=== PATIENT | female | born 1995 | race Hispanic/Latino ===

== ENCOUNTER 2024-08-21 11:38 | Inpatient (IN) | payer BC, SELFPAY ==
[2024-08-21] VITALS (16 sets, daily range): BP systolic 90–118; BP diastolic 49–100; PULSE 76–91; TEMP 36.6–36.9; BMI 50.8
[2024-08-21 12:26] LABS: Basophils Percent Auto 0.4 % (0.2-1.2); Eosinophils Percent Auto 0.4 % (0-4.4); Hematocrit 36.6 % (37.0-47.0); Hemoglobin 12.1 g/dL (12.0-15.0); Immature Granulocyte Absolute 0.11 K/mm3 (0.00-0.031); Immature Granulocyte Percent A 1.2 % (0-0.5); Lymphocytes Absolute Auto 1.76 K/mm3 (0.9-3.2); Lymphocytes Percent Auto 19.8 % (18.3-44.2); Mean Corpuscular HGB Conc 33.1 g/dl (32-36); Mean Corpuscular Hemoglobin 29.7 pg (26-34); Mean Corpuscular Volume 89.9 fl (80-100); Mean Platelet Volume 11.3 fl (7.4-10.4); Monocytes Absolute Auto 0.5 K/mm3 (0.1-0.6); Monocytes Percent Auto 5.1 % (2.6-8.5); Neutrophils Absolute Auto 6.5 K/mm3 (1.3-6.7); Neutrophils Percent Auto 73.1 % (45.5-73.1); Platelet Count Result 221 k/mm3 (150-375); Red Blood Count 4.07 M/mm3 (4.2-5.4); White Blood Count 8.9 K/mm3 (4.5-10.0)
[2024-08-21] MEDS: miSOPROStol 25 MCG TABLET 50 MCG BUCCAL ×3 (12:26→20:27)
--- NOTE | 2024-08-21 12:43 | LDADM ---
This patient, Rachel Cameron, was admitted to Labor/Delivery/Recovery 103 on 08/21/24 at 11:38. Plans for labor, pain management and were discussed with patient. Patient/family oriented to hospital policies and general routines including ID bracelet, bed and alarms, visiting hours, pain management, procedures, bathroom and other care routines, personal items, smoking policy, room service/diet and guest tray routines, infant security routines, and visiting hours. Patient/Family are encouraged to report perceived risks to care and to ask questions if they do not understand what they are told or what they should do. See OBIX for further documentation.
[2024-08-21 13:21] LABS: HIV 1/2 Ab P24 Ag Result Negative (Negative)
[2024-08-22] VITALS (182 sets, daily range): BP systolic 60–220; BP diastolic 24–111; PULSE 58–286; RESP 18; TEMP 36.4–37.8; O2SAT 94–98
[2024-08-22] MEDS: LACTATED RINGERS 1,000 ML 125 ML IV CONT ×4 (02:40→20:04)
[2024-08-22] MEDS: OXYTOCIN 30 UNITS/NS 500 ML 30 UNITS/500 ML BAG IV CONT (02:41)
[2024-08-22 07:47] LABS: Rapid Plasma Reagin Non-Reactive (NonReactive)
--- NOTE | 2024-08-22 08:07 | PM.OBPNLAB ---
Pain Control Date/time seen: 08/22/24 08:07 Comments: SVE 2.5/50/-2 AROM moderate amount of clear, odorless fluid, anticipate vaginal delivery
[2024-08-22] MEDS: ONDANSETRON INJ 4 MG/2 ML VIAL IV PUSH (17:26)
--- NOTE | 2024-08-22 18:29 | PM.IMHP ---
H&P: HPI History of Present Illness Date/Time: 08/21/24 12:29 Chief Complaint: intrahepatic cholestasis of Narrative: Patient is a 29 year old at 36w4d who presents for induction of labor indicated for intrahepatic cholestasis of . She reported itching on her hands and feet at her most recent appointment. Labs were drawn that demonstrated elevated LFTs in the 60s/200s and bile acids elevated to 78. Risks and benefits of medical induction of labor was discussed with the patient who was agreeable to induction. has been otherwise uncomplicated. Review of Systems Review of Systems: All systems reviewed & are unremarkable except as noted in HPI and below PMFSH Family History Family History Other No pertinent family history Social History Social History Smoking status: Never smoker Substance use: never Do You Feel Safe in your Home?: No Lack of Transportation: No Lack of Food: Never True Current Housing: I Have Housing Concerned About Future Housing: No Difficulty Paying Gas/Electric Bills: No Difficulty Paying for Meds: No Currently Unemployed: No Education: Bachelor's Degree Difficulty w/ Childcare or Family Care: No Spiritual care concerns: No Meds Home Medications and Allergies Home Medications Medication Instructions Recorded Confirmed Type vits no.126-ferrous fum 1 tablet PO DAILY 08/19/24 08/19/24 History 28 mg iron-folic acid 800 mcg tablet (Classic ) Allergies Allergy/AdvReac Type Severity Reaction Status Date / Time No Known Allergies Allergy Verified 08/19/24 14:25 Vital Signs Vital Signs - 24 hr 08/21/24 18:31 08/21/24 18:46 08/21/24 19:49 Temperature Pulse Rate 86 90 85 Blood Pressure 108/72 118/100 H 90/49 L Pulse Oximetry 08/21/24 20:29 08/21/24 20:31 08/21/24 21:33 Temperature Pulse Rate 80 81 76 Blood Pressure 99/59 L 106/60 110/56 L Pulse Oximetry 08/21/24 22:01 08/21/24 22:31 08/21/24 22:00 Temperature 98.4 F Pulse Rate 76 80 Blood Pressure 118/77 102/75 Pulse Oximetry 08/22/24 00:30 08/22/24 00:35 08/22/24 01:01 Temperature 98.4 F Pulse Rate 79 88 Blood Pressure 115/65 98/59 L Pulse Oximetry 08/22/24 02:47 08/22/24 02:52 08/22/24 02:57 Temperature Pulse Rate 68 Blood Pressure 115/55 L Pulse Oximetry 97 97 97 08/22/24 03:01 08/22/24 03:02 08/22/24 03:07 Temperature Pulse Rate 68 Blood Pressure 110/63 Pulse Oximetry 97 96 08/22/24 03:12 08/22/24 03:16 08/22/24 03:17 Temperature Pulse Rate 67 Blood Pressure 86/39 L Pulse Oximetry 96 97 08/22/24 03:22 08/22/24 03:27 08/22/24 03:31 Temperature Pulse Rate 66 Blood Pressure 83/32 L Pulse Oximetry 95 96 08/22/24 03:32 08/22/24 03:37 08/22/24 03:44 Temperature Pulse Rate Blood Pressure Pulse Oximetry 96 96 98 08/22/24 03:46 08/22/24 04:01 08/22/24 04:07 Temperature Pulse Rate 74 70 87 Blood Pressure 114/41 L 101/57 L 118/69 Pulse Oximetry 08/22/24 04:09 08/22/24 04:10 08/22/24 04:13 Temperature Pulse Rate 93 91 85 Blood Pressure 112/67 117/85 110/64 Pulse Oximetry 98 08/22/24 04:16 08/22/24 04:18 08/22/24 04:20 Temperature Pulse Rate 88 87 82 Blood Pressure 90/72 L 83/46 L 116/66 Pulse Oximetry 95 08/22/24 04:21 08/22/24 04:23 08/22/24 04:26 Temperature Pulse Rate 81 76 82 Blood Pressure 106/60 111/55 L 110/64 Pulse Oximetry 97 08/22/24 04:27 08/22/24 04:28 08/22/24 04:30 Temperature 98.3 F Pulse Rate 74 84 Blood Pressure 107/61 102/58 L Pulse Oximetry 96 08/22/24 04:33 08/22/24 04:36 08/22/24 04:38 Temperature Pulse Rate 74 72 77 Blood Pressure 112/60 109/58 L 107/66 Pulse Oximetry 95 96 08/22/24 04:41 08/22/24 04:43 08/22/24 04:45 Temperature Pulse Rate 66 70 67 Blood Pressure 109/63 107/61 108/63 Pulse Oximetry 95 08/22/24 04:48 08/22/24 04:50 08/22/24 04:53 Temperature Pulse Rate 68 70 69 Blood Pressure 108/67 110/61 110/63 Pulse Oximetry 95 95 08/22/24 02:00 08/22/24 04:56 08/22/24 04:58 Temperature 97.6 F Pulse Rate 68 65 Blood Pressure 108/64 111/60 Pulse Oximetry 94 08/22/24 05:01 08/22/24 05:03 08/22/24 05:04 Temperature Pulse Rate 68 87 Blood Pressure 112/67 105/51 L Pulse Oximetry 95 08/22/24 05:08 08/22/24 05:13 08/22/24 05:15 Temperature Pulse Rate 70 Blood Pressure 112/66 Pulse Oximetry 97 96 08/22/24 05:18 08/22/24 05:23 08/22/24 05:28 Temperature Pulse Rate Blood Pressure Pulse Oximetry 96 96 96 08/22/24 05:31 08/22/24 05:33 08/22/24 05:37 Temperature Pulse Rate 84 Blood Pressure 60/47 L Pulse Oximetry 96 98 08/22/24 05:42 08/22/24 05:46 08/22/24 05:47 Temperature Pulse Rate 66 Blood Pressure 81/32 L Pulse Oximetry 96 95 08/22/24 05:52 08/22/24 05:57 08/22/24 06:01 Temperature Pulse Rate 67 Blood Pressure 80/36 L Pulse Oximetry 95 96 08/22/24 06:02 08/22/24 06:07 08/22/24 06:13 Temperature Pulse Rate Blood Pressure Pulse Oximetry 95 95 95 08/22/24 06:16 08/22/24 06:17 08/22/24 06:23 Temperature Pulse Rate 66 Blood Pressure 76/29 L Pulse Oximetry 95 95 08/22/24 06:28 08/22/24 06:31 08/22/24 06:33 Temperature Pulse Rate 64 Blood Pressure 77/34 L Pulse Oximetry 95 95 08/22/24 06:38 08/22/24 06:43 08/22/24 06:48 Temperature Pulse Rate 70 Blood Pressure 68/24 L Pulse Oximetry 95 95 96 08/22/24 06:53 08/22/24 06:58 08/22/24 07:01 Temperature Pulse Rate 65 Blood Pressure 81/30 L Pulse Oximetry 95 94 08/22/24 07:03 08/22/24 07:08 08/22/24 07:13 Temperature Pulse Rate Blood Pressure Pulse Oximetry 95 95 95 08/22/24 07:16 08/22/24 07:18 08/22/24 07:23 Temperature Pulse Rate 62 Blood Pressure 78/28 L Pulse Oximetry 95 95 08/22/24 07:28 08/22/24 07:31 08/22/24 07:33 Temperature Pulse Rate 62 Blood Pressure 86/41 L Pulse Oximetry 96 97 08/22/24 07:38 08/22/24 07:30 08/22/24 07:43 Temperature 98.1 F Pulse Rate Blood Pressure Pulse Oximetry 97 97 08/22/24 07:46 08/22/24 07:48 08/22/24 07:53 Temperature Pulse Rate 63 Blood Pressure 83/41 L Pulse Oximetry 97 97 08/22/24 07:58 08/22/24 08:01 08/22/24 08:03 Temperature Pulse Rate 63 Blood Pressure 79/44 L Pulse Oximetry 97 97 08/22/24 08:08 08/22/24 08:13 08/22/24 08:15 Temperature Pulse Rate 76 Blood Pressure 90/64 L Pulse Oximetry 95 94 08/22/24 08:18 08/22/24 08:23 08/22/24 08:28 Temperature Pulse Rate Blood Pressure Pulse Oximetry 95 94 94 08/22/24 08:31 08/22/24 08:33 08/22/24 08:38 Temperature Pulse Rate 64 Blood Pressure 96/50 L Pulse Oximetry 95 96 08/22/24 08:43 08/22/24 08:46 08/22/24 08:48 Temperature Pulse Rate 62 Blood Pressure 96/55 L Pulse Oximetry 95 94 08/22/24 08:53 08/22/24 08:58 08/22/24 09:00 Temperature Pulse Rate 78 Blood Pressure 92/56 L Pulse Oximetry 94 95 08/22/24 09:03 08/22/24 09:08 08/22/24 09:13 Temperature Pulse Rate Blood Pressure Pulse Oximetry 94 94 94 08/22/24 09:16 08/22/24 09:18 08/22/24 09:23 Temperature Pulse Rate 67 Blood Pressure 99/51 L Pulse Oximetry 94 95 08/22/24 09:28 08/22/24 09:31 08/22/24 09:33 Temperature Pulse Rate 68 Blood Pressure 104/55 L Pulse Oximetry 94 94 08/22/24 09:38 08/22/24 09:43 08/22/24 09:46 Temperature Pulse Rate 79 Blood Pressure 98/54 L Pulse Oximetry 95 94 08/22/24 09:48 08/22/24 09:52 08/22/24 09:58 Temperature Pulse Rate Blood Pressure Pulse Oximetry 95 95 95 08/22/24 10:01 08/22/24 10:03 08/22/24 10:08 Temperature Pulse Rate 69 Blood Pressure 103/53 L Pulse Oximetry 96 96 08/22/24 10:13 08/22/24 10:17 08/22/24 09:30 Temperature 97.9 F Pulse Rate 83 Blood Pressure 220/111 H Pulse Oximetry 96 08/22/24 10:27 08/22/24 10:31 08/22/24 10:46 Temperature Pulse Rate 85 73 71 Blood Pressure 105/64 105/63 107/59 L Pulse Oximetry 08/22/24 11:01 08/22/24 11:16 08/22/24 11:31 Temperature Pulse Rate 80 62 66 Blood Pressure 108/62 102/50 L 95/50 L Pulse Oximetry 08/22/24 11:46 08/22/24 12:01 08/22/24 12:16 Temperature Pulse Rate 62 65 69 Blood Pressure 97/60 L 84/39 L 95/40 L Pulse Oximetry 08/22/24 12:30 08/22/24 12:46 08/22/24 13:01 Temperature Pulse Rate 79 78 72 Blood Pressure 109/63 97/52 L 86/56 L Pulse Oximetry 08/22/24 13:16 08/22/24 13:31 08/22/24 13:46 Temperature Pulse Rate 67 70 71 Blood Pressure 102/60 104/53 L 106/56 L Pulse Oximetry 08/22/24 14:01 08/22/24 13:30 08/22/24 14:16 Temperature 98.3 F Pulse Rate 67 65 Blood Pressure 107/57 L 104/55 L Pulse Oximetry 08/22/24 14:31 08/22/24 14:46 08/22/24 15:01 Temperature Pulse Rate 66 97 76 Blood Pressure 108/59 L 108/72 103/56 L Pulse Oximetry 08/22/24 11:30 08/22/24 15:16 08/22/24 15:31 Temperature 98 F Pulse Rate 73 79 Blood Pressure 104/54 L 121/79 Pulse Oximetry 08/22/24 15:27 08/22/24 15:46 08/22/24 16:01 Temperature 98.1 F Pulse Rate 79 84 Blood Pressure 113/71 126/95 H Pulse Oximetry 08/22/24 16:16 08/22/24 16:31 08/22/24 16:45 Temperature Pulse Rate 79 91 102 H Blood Pressure 122/70 105/78 107/74 Pulse Oximetry 08/22/24 17:00 08/22/24 17:42 08/22/24 18:15 Temperature 99.8 F H Pulse Rate 94 117 H Blood Pressure 115/80 109/92 H Pulse Oximetry Exam Const: General: comfortable and no acute distress HENMT: Mouth: Yes moist mucous membranes Resp: Effort & Inspection: normal respiratory effort Cardio: Rate: regular rate Skin: General skin exam: normal color Extrem: General: normal to inspection Psych: Mental Status: mental status grossly normal Assessment and Plan Assessment and plan (1) Cholestasis during in third trimester: Code(s): O26.643 - Intrahepatic cholestasis of , third trimester Status: Acute Assessment and Plan: - intermittent itching of hands and feet - LSTs elevated, bile acids 78 - meets criteria for intrahepatic cholestasis of - discussed risks of ICP including stillbirth and recommendation for delivery given gestational age and lab abnormalities - cytotec per protocol - FHR category I
[2024-08-22] MEDS: OXYTOCIN 30 UNITS/NS 500 ML 30 UNITS/500 ML BAG 125 UNITS IV CONT (18:34)
--- NOTE | 2024-08-22 18:37 | PM.OBPRVD ---
OB - Vaginal Delivery Note Procedure Delivery date: 08/22/24 Events: Other (intrahepatic cholestasis of ) Induction method: Per Misoprostol Protocol Delivery augmentation: Rupture of Membranes and Pitocin Delivery monitor: External FHT and Internal Uterine Route of delivery: Episiotomy description: None Laceration Description: Perineal - 2nd Degree Delivery repair: vicryl Specimen: Yes Quantitative Blood Loss (ml): 200 Anesthesia type: Epidural Disposition: Floor Complications: No immediate complications Narrative: See H&P and notes for details on patient's admission and labor. She progressed to complete cervical dilation and at the appropriate time began pushing. With adequate expulsive efforts by the mother, the baby's head was delivered without difficulty. Nuchal cord was not present. The baby's right shoulder was anterior and delivered under the pubic symphysis without difficulty. The posterior shoulder and the rest of the baby delivered without difficulty. The umbilical cord was doubly clamped and cut after 60 seconds of delayed cord clamping. Care of the infant was then assumed by the nursing staff. [place] Baby Date of : 08/22/24 Time of : 18:06 Gestational Age by Date: 36 gender: Male Weight (pounds): 6 Weight (ounces): 15 presentation: vertex position: Right Occiput Anterior Placenta delivery description: Expressed Cord Vessel Description: 3 Vessels and Delayed Cord Clamping
[2024-08-22] MEDS: METHYLERGONOVINE MALEATE 0.2 MG/ML VIAL IM (19:50)
[2024-08-22 20:42] LABS: Basophils Absolute Auto 0.1 K/mm3 (0.0-0.1); Basophils Percent Auto 0.2 % (0.2-1.2); Hematocrit 29.7 % (37.0-47.0); Hemoglobin 9.7 g/dL (12.0-15.0); Immature Granulocyte Absolute 0.13 K/mm3 (0.00-0.031); Immature Granulocyte Percent A 0.6 % (0-0.5); Lymphocytes Absolute Auto 1.08 K/mm3 (0.9-3.2); Lymphocytes Percent Auto 5.4 % (18.3-44.2); Mean Corpuscular HGB Conc 32.7 g/dl (32-36); Mean Corpuscular Hemoglobin 29.9 pg (26-34); Mean Corpuscular Volume 91.7 fl (80-100); Mean Platelet Volume 11.7 fl (7.4-10.4); Monocytes Absolute Auto 1.1 K/mm3 (0.1-0.6); Monocytes Percent Auto 5.3 % (2.6-8.5); Neutrophils Absolute Auto 17.8 K/mm3 (1.3-6.7); Neutrophils Percent Auto 88.5 % (45.5-73.1); Platelet Count Result 180 k/mm3 (150-375); Red Blood Count 3.24 M/mm3 (4.2-5.4); Red Cell Distribution Width 13.2 % (11.5-14.5); White Blood Count 20.2 K/mm3 (4.5-10.0)
[2024-08-22] MEDS: BENZOCAINE 20% AER SPR (*SP) 56 GM CAN 1 SPRAY TOPICAL (21:08)
[2024-08-22] MEDS: WITCH HAZEL 40 PADS 1 PAD TOPICAL (21:08)
--- NOTE | 2024-08-22 21:44 | PC.NURSE ---
Patient transferred to post room # via ([id number] ). Support person present. Oriented to unit, room, information board, rooming in, admission packet and security measures. Patient verbalizes understanding.
[2024-08-23 02:36] VITALS: BP 102/60; PULSE 92; RESP 18; TEMP 36.8; O2SAT 96
[2024-08-23 07:13] LABS: Hematocrit 23.3 % (37.0-47.0); Hemoglobin 8.1 g/dL (12.0-15.0)
--- NOTE | 2024-08-23 07:56 | WPDANLDPN2 ---
Anes-Prog Note L&D Date/Time: 08/23/24 07:56 Comfortable throughout: labor and delivery Neuraxial method: epidural Epidural/Spinal procedure site: tender Neuro status: Neuro function grossly intact. Cardiovascular status: normal Respiratory status: normal Airway patency: baseline Mental status: baseline Post-Op hydration status: normal Vital Signs: Last Vital Signs Temp 36.8 C 08/23/24 02:36 Pulse 92 08/23/24 02:36 Resp 18 08/23/24 02:36 BP 102/60 08/23/24 02:36 Pulse Ox 96 08/23/24 02:36 O2 Del Method Room Air 08/22/24 22:50 Pain score (VAS): 3/10 I/O: Intake & Output 08/22/24 08/22/24 08/23/24 15:59 23:59 07:59 Intake Total 1000 1000 Output Total 830 Balance 1000 170 Post-procedural complaints: none Patient feedback: Patient satisfied with anesthetic care.
[2024-08-23 08:05] VITALS: BP 97/40; PULSE 86; RESP 18; TEMP 36.4; O2SAT 99
[2024-08-23] MEDS: MULTIVIT/MIN/PREN/FOL AC/IRON TABLET 1 TAB PO (08:38)
[2024-08-23] MEDS: POLYSACCHARIDE IRON COMPLEX 150 MG CAPSULE PO (08:38)
[2024-08-23] MEDS: DOCUSATE SODIUM 100 MG CAPSULE PO (08:38)
--- NOTE | 2024-08-23 08:44 | PM.OBPNVD ---
OB - PN: Subj Subjective Date/time seen: 08/23/24 08:44 Interval history: PPD#1 Doing well, pain well controlled Tolerating general diet Voiding without issue Baby transferred for TTN, desires discharge today to be with baby OB - PN: Obj Data Labs 08/23/24 06:54 Labs: Laboratory Results - last 24 hr 08/22/24 08/23/24 20:16 06:54 WBC 20.2 H RBC 3.24 L Hgb 9.7 L 8.1 L Hct 29.7 L 23.3 L MCV 91.7 MCH 29.9 MCHC 32.7 RDW 13.2 Plt Count 180 MPV 11.7 H Immature Gran % (Auto) 0.6 H Neut % (Auto) 88.5 H Lymph % (Auto) 5.4 L [place] % (Auto) 5.3 Eos % (Auto) 0.0 Baso % (Auto) 0.2 Lymph # (Auto) 1.08 [place] # (Auto) 1.1 H Eos # (Auto) 0.0 Baso # (Auto) 0.1 Abs Immat Gran (auto) 0.13 H Absolute Neuts (auto) 17.8 H Absolute Nucleated RBC 0.000 Nucleated RBC % 0.0 OB - PN A/P Plan day: 1 Plan: routine care and discharge home Time Spent With Patient Time: Total time spent is greater than 50% in coordination of care (as documented) at patient's floor/unit and/or counseling patient: Review of Systems Review of Systems: All systems reviewed & are unremarkable except as noted in HPI and below Exam Const: General: comfortable and no acute distress Orientation/consciousness: patient oriented x3 Resp: Effort & Inspection: normal respiratory effort
--- NOTE | 2024-08-23 08:48 | P.DS_ITS ---
DS: Admitting Diagnosis Discharge Date 08/23/24 Admitting Diagnosis intrahepatic cholestasis of OB - DS: Summary OB Procedures : None OB Procedures Intrapartum: Spontaneous Vag Delivery OB Procedures: : None Peripartum Data Laceration Description: Perineal - 2nd Degree Episiotomy description: None Time Spent with Patient Time attestation: Total time spent providing and/or coordinating discharge services: DS: Data Data Completed and Pending Pending studies at discharge: Pending at discharge 08/22/24 18:12 Surgical [PTH] Routine Labs on day of discharge: Labs from last 24 hours 08/23/24 08/22/24 06:54 20:16 WBC 20.2 H RBC 3.24 L Hgb 8.1 L 9.7 L Hct 23.3 L 29.7 L MCV 91.7 MCH 29.9 MCHC 32.7 RDW 13.2 Plt Count 180 MPV 11.7 H Immature Gran % (Auto) 0.6 H Neut % (Auto) 88.5 H Lymph % (Auto) 5.4 L [place] % (Auto) 5.3 Eos % (Auto) 0.0 Baso % (Auto) 0.2 Lymph # (Auto) 1.08 [place] # (Auto) 1.1 H Eos # (Auto) 0.0 Baso # (Auto) 0.1 Abs Immat Gran (auto) 0.13 H Absolute Neuts (auto) 17.8 H Absolute Nucleated RBC 0.000 Nucleated RBC % 0.0 Discharge Plan Discharge Attending physician on discharge: Asif Diaz Discharging Clinician: Asif Diaz Patient Disposition: Home, Self-Care Activity: may shower, as tolerated and pelvic rest Diet: as tolerated Patient Instructions: Antibiotic Form Stand Alone Forms: General Discharge Information Follow-up/Referrals: Asif Diaz MD [Physician] - 1 Week Discharge Medications: New docusate sodium 100 mg Capsule 100 mg PO BID PRN (Reason: Constipation) Qty: 60 0RF ibuprofen 600 mg Tablet 600 mg PO Q6H PRN (Reason: Cramping) Qty: 30 0RF Continued Classic 28 mg iron- 800 mcg Tablet 1 tablet PO DAILY Date of admission: 08/21/24 11:38 Primary Care Provider: UNKNOWN,DOCTOR Admitting Provider: Asif Diaz Attending physician on admission: Asif Diaz Condition: Stable
[2024-08-23 12:26] VITALS: BP 95/53; PULSE 82; RESP 18; TEMP 36.3; O2SAT 98
[2024-08-25 10:44] VITALS: BP 118/65; PULSE 79; RESP 20; TEMP 36.6; O2SAT 100
== END 2024-08-23 11:58 | disposition home or self-care (01) | DRG 807 ==
LOC: ANHLDR 12:02 → ANHOB2 08-23 00:25
PROVIDERS: Admitting Provider Obstetrics & Gynecology; Visit Provider Obstetrics & Gynecology
DX: O26.643 Intrahepatic cholestasis of pregnancy, third trimester (principal); E78.79 Other disorders of bile acid and cholesterol metabolism; Z37.0 Single live birth; O70.1 Second degree perineal laceration during delivery; Z3A.36 36 weeks gestation of pregnancy
CPT/HCPCS: 36415; 85014; 85018; 85025; 86592; 86703; 86850; 86900; 86901; 88307; A9270; G0432; J2210; J2405; J2590; J2795; J7120